=== PATIENT | female | born 1970 | race Caucasian/White ===

== ENCOUNTER 2018-12-21 05:54 | Day surgery (SDC) | payer BC ==
[2018-12-21] MEDS ORDERED: SCOPOLAMINE HYDROBROMIDE 1.5MG/72HR PATCH TD ONE (06:49)
[2018-12-21] MEDS ORDERED: BUPIV. HCL 0.5% (5MG/ML)/EPI. (1:200,000) PF 30 ML VIAL IJ ONE (07:51)
[2018-12-21] MEDS ORDERED: LACTATED RINGERS 1,000 ML IV.SOLN IV ONE ×2 (08:48)
[2018-12-21] MEDS ORDERED: SUGAMMADEX SODIUM 200 MG/2 ML VIAL IV ONE (08:48)
[2018-12-21] MEDS ORDERED: MIDAZOLAM HCL 2 MG/2 ML VIAL ONE (08:48)
[2018-12-21] MEDS ORDERED: BACITRACIN 50,000 UNIT VIAL IR ONE (08:48)
[2018-12-21] MEDS ORDERED: GELATIN SPONGE,ABSORB/PORCINE (SIZE 100) 1 EACH SPONGE TP ONE (08:48)
[2018-12-21] MEDS ORDERED: ePHEDrine SULFATE 50 MG/1 ML IVP ONE (08:48)
[2018-12-21] MEDS ORDERED: ceFAZolin SODIUM 1 GM VIAL ONE (08:48)
[2018-12-21] MEDS ORDERED: LIDOCAINE HCL 2% PF 100MG/5ML VIAL IJ ONE (08:48)
[2018-12-21] MEDS ORDERED: ROCURONIUM BROMIDE 10 MG/ML 5ML VIAL ONE (08:48)
[2018-12-21] MEDS ORDERED: ONDANSETRON HCL/PF 4 MG/ 2ML VIAL ONE (08:48)
[2018-12-21] MEDS ORDERED: SEVOFLURANE 250 ML LIQUID IH ONE (08:48)
[2018-12-21] MEDS ORDERED: PROPOFOL 200 MG/20 ML VIAL IV ONE (08:48)
[2018-12-21] MEDS ORDERED: DEXAMETHASONE SODIUM PHOSPHATE 10 MG/ML VIAL ONE (08:48)
[2018-12-21] MEDS ORDERED: THROMBIN (RECOMBINANT) 20,000 UNIT VIAL TP ONE (08:48)
[2018-12-21] MEDS ORDERED: HYDROmorphone HCL/PF 1 MG/ML VIAL ONE (09:55)
[2018-12-24 13:50] LABS: APPEARANCE,URINE CLEAR (CLEAR); COLOR,URINE YELLOW (YELLOW); OCCULT BLOOD,URINE NEGATIVE (NEGATIVE); UROBILINOGEN URINE 0.2 Eu (0.2-1.0)
--- NOTE | 2018-12-25 15:59 | Operative Note ---
PREOPERATIVE DIAGNOSIS: 1. Cervical degenerative disc disease, C6-7. 2. Foraminal stenosis, C6-7. 3. Herniated nucleus pulposus, C6-7. 4. Neck pain. POSTOPERATIVE DIAGNOSIS: 1. Cervical degenerative disc disease, C6-7. 2. Foraminal stenosis, C6-7. 3. Herniated nucleus pulposus, C6-7. 4. Neck pain. PROCEDURES PERFORMED: 1. C6-7 anterior total discectomy. 2. Removal of posterior cervical osteophytes. 3. Posterior neural foraminal decompressions. 4. Insertion of cervical total disc replacement. 5. Fluoroscopy. SURGEON: Gui Somers M.D. FIRE CHIEF SURGEON: Ren Mason Jr., M.D. ANESTHESIA: General via endotracheal tube. INDICATIONS: The patient has had intractable neck pain with some components of arm symptoms referable to the C7 nerve root distribution. She is noted to have a herniated disc manifesting as neck pain and some arm symptoms in the C7 nerve root distribution. The patient has proved refractory to multimodality conservative therapy and has requested that we proceed with operative intervention. The patient understands the risks of surgery to be , DVT, pulmonary embolism, quadriplegia, loss of use of arms and/or legs, numbness, tingling, weakness, incoordination, loss of ability to ambulate, loss of bowel and bladder function, loss of sexual function, the possibility of bleeding, bleeding requiring transfusion, transfusion-attendant risks of AIDS and hepatitis, infection, and again she requested we proceed. She also understood the small chance of dural leak. DESCRIPTION OF PROCEDURE: The patient was brought to the operating room and administered general anesthesia via endotracheal tube. Lower extremities were treated with GEORGES hose and intermittent compression stockings. The patient received a gram of vancomycin and 10 of Decadron. The patient was intubated via endotracheal tube and an esophageal stethoscope was placed. The patient was positioned on the radiolucent Erlin table in the supine position with a bump between the scapulae to allow scapular retraction and a neck neutral position. Arms were carefully padded, tucked and taped to the side. The hips and knees were flexed over two pillows and the heels were on gel. In this neck-neutral position, the anterior aspect of the neck was defatted with alcohol. She was visualized under fluoroscopy. The skin fold most approximating the C6-7 level was chosen and then a sterile prep and drape ensued. We then infiltrated the skin with 0.5% Marcaine with 1:200,000 epinephrine. Sharp dissection was continued down through the skin and the subcutaneous tissues to the level of the platysma. The platysma was elevated between two forceps and split in combination in line with the platysma at the anterior border of the sternocleidomastoid. We then palpated the carotid and proceeded to bluntly dissect with a Kittner Dissector in a standard anteromedial approach medial to the spine. With the anterior aspect of the spine exposed, we swept the fibrofatty tissue from the anterior aspect of the spine, noting that there was some scar from the previous anterior cervical discectomies and fusions performed cephalad. Eventually, we had mobilization of the tissues. We elevated the longus colli, inserted the self-retaining cervical retractor system. We then incised the disc and performed an anterior annulectomy. With the anterior annulectomy complete, we were able to then start the total discectomy. Total discectomy was performed with a combination of pituitaries and forward-angled curettes, and at times a 3 mm Kerrison. When the disc had been removed in its entirety, the next step was to use a micro curette to separate the posterior longitudinal ligament from the posterior spondylitic ridge of C7. This was then resected with a 2 mm Kerrison. We then resected the inferior spondylitic ridge of C6. With these removed, we then performed posterior neural foraminal decompressions with removal of the medial half of the uncovertebral joints bilaterally until the nerve roots egressed without any pressure whatsoever. We also removed the midline disc herniation. When complete, we took down the posterior longitudinal ligament and had complete visualization from right to left of the dura. With the dura visualized, we then began by obtaining parallel distraction of the disc space. We then inserted a 6 mm trial for the cervical disc. When the 6 mm trial appeared appropriate, we inserted the cutters and the cutters were used to cut the trials for the cervical disc. The cervical disc was then carefully impacted back to the posterior lip of the vertebra. The cephalad portion of the disc, endplate portion of the disc was then impacted asymmetrically an additional millimeter to get parallel surfaces. We released the retractors and obtained AP and lateral fluoroscopy. In fact, AP and lateral fluoroscopy had been used with the trial, it had been used with the sizer, it had been used with the cutters, and it was used during the insertion to be able to place the disc. Considerable fluoroscopic exposure was experienced and a need for repeated intraoperative interpretation of that fluoroscopy to obtain ideal center midline placement of the disc and posterior displacement to the posterior body required significant fluoroscopy. When complete, we irrigated with a liter of antibiotic-containing solution, we inspected for hemostasis and found hemostasis to be superb. We reapproximated the platysma with 3-0 Vicryl, the subcu with 3-0 Vicryl, and the skin with a subcuticular 3-0 Vicryl. We then dressed it with skin glue, Xeroform, sterile dressing, sponges, a Bioclusive, and a soft collar was applied. The patient tolerated the procedure well. There were no technical misadventures. The final blood loss was approximately 50 mL. She tolerated the procedure well and the patient was being transported to the recovery room for close serial neurovascular observation, continued prophylactic antibiotic and serial neuorovascular exams. GUI SOMERS M.D. JAMIE/jessica (Please copy [facility] provider when applicable) Job #[id number] MELL
== END 2018-12-21 12:15 | disposition home or self-care (01) ==
LOC: OPSURG 05:54
DX: M50.223 Other cervical disc displacement at C6-C7 level (principal); M48.02 Spinal stenosis, cervical region
CPT/HCPCS: 22856; 81002; A9270; J1170; J0690; J2001; J2250; J2405; J2704; J3490; J7120